=== PATIENT | female | born 1955 | race African-American/Black ===

== ENCOUNTER 2020-07-13 16:56 | Emergency (ER) | payer SELFPAY ==
[2020-07-13] MEDS ORDERED: Morphine 4 MG/ML VIAL ONE (19:28)
[2020-07-13 20:10] LABS: #Basophils 0.1 thou/uL (0.0-0.2); #Lymphocytes 2.5 thou/uL (1.20-3.40); #Monocytes 0.2 thou/uL (0.11-0.59); #Neutrophils 4.5 thou/uL (1.40-6.50); %Basophils 1.2 % (0.0-1.0); %Eosinophils 0.2 % (0.0-10.0); %Lymphocytes 33.8 % (21.0-51.0); %Monocytes 3.4 % (0.0-10.0); %Neutrophils 61.5 % (42.0-75.0); Mean Corpuscular Hemoglobin 36.3 pg (27.0-31.0); Mean Platelet Volume 8.6 fL (7.4-10.4); Platelet Count 273 thou/uL (130-400); Red Blood Cell (RBC) Count 3.86 mill/uL (4.20-5.40); White Blood Cell (WBC) Count 7.3 thou/uL (4.8-10.8)
[2020-07-13 20:13] LABS: INR-International Normal Ratio 0.9; Prothrombin Time 12.6 sec (12.0-14.7)
[2020-07-13] MEDS ORDERED: Acetaminophen 500 MG TAB ONE (20:15)
[2020-07-13 20:37] LABS: ALT (SGPT) 25 U/L (8-55); AST (SGOT) 42 U/L (5-34); Albumin 4.5 g/dL (3.4-4.8); Alkaline Phosphatase 75 U/L (40-110); Anion Gap 20 mmol/L (10-20); BUN (Urea Nitrogen) 6 mg/dL (9.8-20.1); Bilirubin, Total 0.7 mg/dL (0.2-1.2); Calc. Creatinine Clearance 0 mL/min (70-130); Calcium 9.5 mg/dL (7.8-10.44); Carbon Dioxide 19 mmol/L (23-31); Chloride 102 mmol/L (98-107); Globulin 3.4 g/dL (2.4-3.5); Glucose 77 mg/dL (80-115); Potassium 5.1 mmol/L (3.5-5.1); Protein, Total 7.9 g/dL (5.8-8.1); Sodium 136 mmol/L (136-145)
[2020-07-13] MEDS ORDERED: Ketorolac Tromethamine 30 MG/ML VIAL ONE (21:02)
== END 2020-07-13 21:54 | disposition home or self-care (01) ==
LOC: ERS 16:56
DX: S30.0XXA Contusion of lower back and pelvis, initial encounter (principal); R33.9 Retention of urine, unspecified; I10 Essential (primary) hypertension; F17.210 Nicotine dependence, cigarettes, uncomplicated; W18.30XA Fall on same level, unspecified, initial encounter
CPT/HCPCS: 74177; 80053; 85025; 85610; 85730; 96374; J1885; J2270

== ENCOUNTER 2020-07-24 11:55 | Emergency (ER) | payer SELFPAY ==
[2020-07-24] MEDS ORDERED: Iopamidol-370 76% 500 ML 1 ML ONE (13:53)
[2020-07-24 13:54] LABS: #Lymphocytes 1.7 thou/uL (1.20-3.40); #Monocytes 0.7 thou/uL (0.11-0.59); #Neutrophils 4.5 thou/uL (1.40-6.50); %Basophils 0.1 % (0.0-1.0); %Eosinophils 0.3 % (0.0-10.0); %Lymphocytes 24.9 % (21.0-51.0); %Monocytes 9.8 % (0.0-10.0); %Neutrophils 64.9 % (42.0-75.0); Hemoglobin 14.4 g/dL (12.0-16.0); Mean Corpuscular HGB CONC 34.8 g/dL (32.0-36.0); Mean Corpuscular Hemoglobin 36.1 pg (27.0-31.0); Mean Platelet Volume 7.3 fL (7.4-10.4); Platelet Count 309 thou/uL (130-400); RBC Distribution Width 12.1 % (11.5-14.5); White Blood Cell (WBC) Count 6.9 thou/uL (4.8-10.8)
[2020-07-24 14:04] LABS: ALT (SGPT) 26 U/L (8-55); AST (SGOT) 59 U/L (5-34); Albumin 4.7 g/dL (3.4-4.8); Alkaline Phosphatase 68 U/L (40-110); Anion Gap 18 mmol/L (10-20); BUN (Urea Nitrogen) 9 mg/dL (9.8-20.1); Bilirubin, Total 1.1 mg/dL (0.2-1.2); Calc. Creatinine Clearance 0 mL/min (70-130); Calcium 9.6 mg/dL (7.8-10.44); Carbon Dioxide 24 mmol/L (23-31); Chloride 104 mmol/L (98-107); Globulin 3.7 g/dL (2.4-3.5); Glucose 92 mg/dL (80-115); Protein, Total 8.4 g/dL (5.8-8.1); Sodium 141 mmol/L (136-145)
[2020-07-24 14:10] LABS: Bilirubin Negative (Negative); Blood, Urine Trace (Negative); Glucose, Urine (Dipstick) Negative (Negative); Ketone, Urine Negative (Negative); Leukocyte Negative (Negative); Nitrite Negative (Negative); Protein, Urine (Dipstick) Negative (Neg-Trace); Urobilinogen 0.2 mg/dL (Less than 2)
[2020-07-24 14:16] LABS: Clarity Clear (Clear)
[2020-07-24 14:17] LABS: Bacteria/HPF None Seen HPF (None Seen); RBC/HPF 0-3 HPF (0-3); WBC/HPF 0-3 HPF (0-3)
== END 2020-07-24 16:56 | disposition home or self-care (01) ==
LOC: ERS 11:55
DX: R55 Syncope and collapse (principal); F17.210 Nicotine dependence, cigarettes, uncomplicated; I10 Essential (primary) hypertension; Z79.899 Other long term (current) drug therapy; W19.XXXA Unspecified fall, initial encounter
CPT/HCPCS: 36415; 70450; 71045; 71275; 72125; 80053; 81003; 84484; 85025; 85379; 93005; Q9967

== ENCOUNTER 2020-11-14 20:31 | Emergency (ER) | payer SELFPAY ==
[2020-11-14 23:05] LABS: ALT (SGPT) 27 U/L (8-55); AST (SGOT) 70 U/L (5-34); Albumin 4.5 g/dL (3.4-4.8); Alkaline Phosphatase 76 U/L (40-110); Anion Gap 16 mmol/L (10-20); BUN (Urea Nitrogen) 8 mg/dL (9.8-20.1); Bilirubin, Total 0.5 mg/dL (0.2-1.2); Calc. Creatinine Clearance 0 mL/min (70-130); Calcium 9.8 mg/dL (7.8-10.44); Carbon Dioxide 27 mmol/L (23-31); Chloride 100 mmol/L (98-107); Globulin 4.1 g/dL (2.4-3.5); Glucose 91 mg/dL (80-115); Potassium 4.7 mmol/L (3.5-5.1); Protein, Total 8.6 g/dL (5.8-8.1); Sodium 138 mmol/L (136-145)
[2020-11-14 23:32] LABS: Lymphocytes 43 % (21-51); MDiff Complete? YES; Macrocytosis SLIGHT = 6-15 cells (100X) (0-5/hpf); Mean Corpuscular HGB CONC 33.7 g/dL (32.0-36.0); Mean Corpuscular Hemoglobin 35.6 pg (27.0-31.0); Mean Platelet Volume 7.7 fL (7.4-10.4); Monocytes 12 % (0-10); Neutrophil 40 % (42-75); Platelet Count 304 thou/uL (130-400); Platelet Morphology Comment Appears Adequate; Reactive Lymphocytes 4 % (0-10); Red Blood Cell (RBC) Count 4.48 mill/uL (4.20-5.40); Target Cells SLIGHT = 2-5 cells (100X) (0-1/hpf); White Blood Cell (WBC) Count 4.5 thou/uL (4.8-10.8)
== END 2020-11-15 00:12 | disposition home or self-care (01) ==
LOC: ERS 20:31
DX: R41.82 Altered mental status, unspecified (principal); R29.700 NIHSS score 0; I10 Essential (primary) hypertension; F17.210 Nicotine dependence, cigarettes, uncomplicated
CPT/HCPCS: 36415; 70450; 80053; 84146; 85025

== ENCOUNTER 2023-05-08 09:09 | Inpatient (IN) | payer MEDICARE, SELFPAY ==
[2023-05-08 09:32] LABS: #Basophils Less than 0.03 10x3/uL (0.0-0.2); #Eosinphils Less than 0.03 10x3/uL (0.0-0.7); %Basophils 0.1 % (0.0-1.0); %Lymphocytes 23.9 % (21.0-51.0); %Monocytes 15.1 % (0.0-10.0); %Neutrophils 60.6 % (42.0-75.0); Hematocrit 40.6 % (36.0-47.0); Hemoglobin 14.2 g/dL (12.0-16.0); Mean Corpuscular Hemoglobin 35.1 pg (27.0-31.0); Mean Corpuscular Volume 100.2 fL (78.0-98.0); Mean Platelet Volume 9.8 fL (7.4-10.4); Platelet Count 358 10x3/uL (130-400); RBC Distribution Width 14.1 % (11.5-14.5); Red Blood Cell (RBC) Count 4.05 mill/uL (4.20-5.40)
[2023-05-08 09:47] LABS: ALT (SGPT) 12 U/L (8-55); AST (SGOT) 22 U/L (5-34); Albumin 4.2 g/dL (3.4-4.8); Alkaline Phosphatase 80 U/L (40-110); Anion Gap 13 mmol/L (10-20); BUN (Urea Nitrogen) 10 mg/dL (9.8-20.1); Bilirubin, Total 1.1 mg/dL (0.2-1.2); Calc. Creatinine Clearance 0 mL/min (70-130); Carbon Dioxide 31 mmol/L (23-31); Chloride 93 mmol/L (98-107); Estimated GFR 67; Globulin 3.5 g/dL (2.4-3.5); Glucose 113 mg/dL (80-115); Lipase 9 U/L (8-78); Potassium 3.4 mmol/L (3.5-5.1); Protein, Total 7.7 g/dL (5.8-8.1); Sodium 134 mmol/L (136-145)
[2023-05-08] MEDS ORDERED: Morphine 4 MG/ML VIAL ONE (10:00)
[2023-05-08] MEDS ORDERED: Ondansetron PF 4 MG/2 ML Vial ONE (10:00)
[2023-05-08] MEDS ORDERED: Famotidine/PF 20 mg/2ml Vial ONE (10:01)
[2023-05-08 12:05] LABS: Bacteria/HPF None Seen HPF (None Seen); Bilirubin Negative (Negative); Blood, Urine Negative (Negative); CAUTI Indications for Culture Dysuria,urgency,freq; Clarity Clear (Clear); Glucose, Urine (Dipstick) Normal (Negative); Ketone, Urine Negative (Negative); Leukocyte Negative Leu/uL (Negative); Nitrite Negative (Negative); Protein, Urine (Dipstick) Negative (Neg-Trace); RBC/HPF 0-3 HPF (0-3); Specific Gravity, Urine 1.019 (1.002-1.036); Urobilinogen Normal mg/dL (Less than 2); WBC/HPF 0-3 HPF (0-3)
[2023-05-08 12:10] LABS: Urine Culture Reflex No No
[2023-05-08] MEDS ORDERED: Benzocaine 20% Spray 60 ML CAN ONE (12:11)
[2023-05-08] MEDS ORDERED: Morphine 4 MG/ML VIAL SLOW IVP PRN (12:15)
[2023-05-08] MEDS ORDERED: Ondansetron PF 4 MG/2 ML Vial IVP PRN (12:15)
[2023-05-08] MEDS ORDERED: Ipratropium/Albuterol 3 ML NEB NEB PRN (12:15)
[2023-05-08] MEDS ORDERED: Iopamidol-370 76% 500 ML MDV (1 ML CHARGE) ONE (12:25)
[2023-05-08 12:48] VITALS: BMI 19.8
[2023-05-08] MEDS: hydrALAZINE 20 MG/ML VIAL SLOW IVP PRN (13:21)
[2023-05-08] MEDS: Ketorolac Tromethamine 30 MG (1 mL) VIAL IVP SCH (13:21)
[2023-05-08] MEDS: TETANUS, DIPHTHERIA TOX,ADULT (TDVAX) 0.5 ML VIAL IM ONE (15:28)
[2023-05-08] MEDS: Potassium Chloride 30 MEQ in Sodium Chloride 0.9% 1,000 ML IV SCH (15:31)
[2023-05-08] MEDS: Ketorolac Tromethamine 30 MG (1 mL) VIAL IVP PRN (18:27)
[2023-05-08] MEDS: Morphine 2 MG/ML VIAL SLOW IVP PRN (20:54)
[2023-05-08] MEDS: diphenhydrAMINE 50 MG/ML VIAL IVP PRN (20:55)
[2023-05-08] MEDS: Enoxaparin 40 MG (0.4 mL) SYRINGE SC SCH (20:55)
[2023-05-09 05:15] LABS: Hematocrit 36.2 % (36.0-47.0); Hemoglobin 11.9 g/dL (12.0-16.0); Mean Corpuscular HGB CONC 32.9 g/dL (32.0-36.0); Mean Corpuscular Hemoglobin 34.5 pg (27.0-31.0); Mean Corpuscular Volume 104.9 fL (78.0-98.0); Mean Platelet Volume 10.3 fL (7.4-10.4); Platelet Count 308 10x3/uL (130-400); Red Blood Cell (RBC) Count 3.45 mill/uL (4.20-5.40)
[2023-05-09 05:33] LABS: ALT (SGPT) 10 U/L (8-55); AST (SGOT) 17 U/L (5-34); Albumin 3.3 g/dL (3.4-4.8); Alkaline Phosphatase 57 U/L (40-110); Anion Gap 14 mmol/L (10-20); BUN (Urea Nitrogen) 10 mg/dL (9.8-20.1); Bilirubin, Total 1.1 mg/dL (0.2-1.2); Calc. Creatinine Clearance 53 mL/min (70-130); Calcium 8.4 mg/dL (7.8-10.44); Carbon Dioxide 23 mmol/L (23-31); Chloride 107 mmol/L (98-107); Estimated GFR 82; Globulin 2.6 g/dL (2.4-3.5); Glucose 72 mg/dL (80-115); Potassium 3.7 mmol/L (3.5-5.1); Protein, Total 5.9 g/dL (5.8-8.1); Sodium 140 mmol/L (136-145)
[2023-05-09 06:22] LABS: Anisocytosis SLIGHT = 6-15 cells HPF (0-5); Band 4 % (5-11); Lymphocytes 34 % (21-51); Macrocytosis MODERATE=16-30 cells HPF (0-5); Monocytes 15 % (0-10); Neutrophil 46 % (42-75); Platelet Adequacy Comment Platelets Normal; Polychromasia SLIGHT = 2-3 cells HPF (0-2)
[2023-05-09] MEDS: Pantoprazole 40 MG VIAL IVP SCH (08:30)
[2023-05-09] MEDS: FLU VACC QS2023(65UP)/MF59C/PF 60 MCG/0.5 ML SYRINGE IM ONE (08:58)
[2023-05-09] MEDS ORDERED: MD-Gastroview 120 ML BOT ONE (11:06)
[2023-05-09] MEDS ORDERED: Labetalol HCl 100 MG/20 ML VIAL SLOW IVP PRN (13:51)
[2023-05-09] MEDS: Amlodipine 10 MG TAB PO SCH (14:31)
[2023-05-09] MEDS: Labetalol HCl 100 MG/20 ML VIAL SLOW IVP SCH (14:31)
[2023-05-09] MEDS: Acetaminophen 500 MG TAB PO SCH (17:56)
[2023-05-09] MEDS: Melatonin 3 MG TAB PO SCH (20:40)
[2023-05-10] MEDS: Amlodipine 10 MG TAB PO SCH (08:02)
[2023-05-10 09:05] VITALS: TEMP 98.8
[2023-05-10 11:48] VITALS: BP 157/84
== END 2023-05-10 12:20 | disposition home or self-care (01) | DRG 390 ==
LOC: ERS 09:09 → SURG A 12:43
PROVIDERS: ADMIT Specialist; ATTEND Specialist
PROC: 0D9670Z Drainage of Stomach with Drainage Device, Via Natural or Artificial Opening (ICD-10-PCS; principal; 2023-05-08)
PROC: 3E0G76Z Introduction of Nutritional Substance into Upper GI, Via Natural or Artificial Opening (ICD-10-PCS; 2023-05-08)
DX: K56.609 Unspecified intestinal obstruction, unspecified as to partial versus complete obstruction (principal); F17.210 Nicotine dependence, cigarettes, uncomplicated; I10 Essential (primary) hypertension; Z88.5 Allergy status to narcotic agent
CPT/HCPCS: 36415; 43753; 71045; 74022; 74177; 74250; 80053; 81001; 83690; 85025; 93005; 96374; 96375; C9113; J0360; J1200; J1650; J1885; J2270; J2272; J2405; J3480; J7050; Q9963; Q9967; S0028

== ENCOUNTER 2023-12-09 21:05 | Inpatient (IN) | payer MEDICARE, OTHER ==
[~2023-12-09 21:05] MED LIST: Iopamidol-370 76% 500 ML MDV (1 ML CHARGE) ONE
[2023-12-09 21:36] LABS: #Basophils Less than 0.03 10x3/uL (0.0-0.2); #Eosinophils Less than 0.03 10x3/uL (0.0-0.7); %Basophils 0.2 % (0.0-1.0); %Eosinophils 0.1 % (0.0-10.0); %Lymphocytes 8.4 % (21.0-51.0); %Monocytes 5.3 % (0.0-10.0); %Neutrophils 85.7 % (42.0-75.0); Hematocrit 39.4 % (36.0-47.0); Hemoglobin 13.5 g/dL (12.0-16.0); Mean Corpuscular HGB CONC 34.3 g/dL (32.0-36.0); Mean Corpuscular Hemoglobin 34.4 pg (27.0-31.0); Mean Corpuscular Volume 100.5 fL (78.0-98.0); Mean Platelet Volume 10.9 fL (7.4-10.4); Platelet Count 326 10x3/uL (130-400); RBC Distribution Width 14.9 % (11.5-14.5); Red Blood Cell (RBC) Count 3.92 mill/uL (4.20-5.40)
[2023-12-09 21:51] LABS: ALT (SGPT) 22 U/L (8-55); AST (SGOT) 24 U/L (5-34); Albumin 4.1 g/dL (3.4-4.8); Alkaline Phosphatase 98 U/L (40-110); Anion Gap 17 mmol/L (10-20); BUN (Urea Nitrogen) 5 mg/dL (9.8-20.1); Bilirubin, Total 0.7 mg/dL (0.2-1.2); Calc. Creatinine Clearance 0 mL/min (70-130); Calcium 10.5 mg/dL (7.8-10.44); Carbon Dioxide 27 mmol/L (23-31); Chloride 98 mmol/L (98-107); Estimated GFR 71; Globulin 3.9 g/dL (2.4-3.5); Glucose 136 mg/dL (80-115); Lipase 11 U/L (8-78); Potassium 3.3 mmol/L (3.5-5.1); Sodium 139 mmol/L (136-145)
[2023-12-09] MEDS ORDERED: Ondansetron PF 4 MG/2 ML Vial ONE (21:54)
[2023-12-09] MEDS ORDERED: Morphine 4 MG/ML VIAL ONE (21:54)
[2023-12-09] MEDS ORDERED: Morphine 4 MG/ML VIAL SLOW IVP PRN (23:18)
[2023-12-09] MEDS ORDERED: Ondansetron PF 4 MG/2 ML Vial IVP PRN (23:30)
[2023-12-09] MEDS ORDERED: Ondansetron ODT 4 MG TAB SL PRN (23:30)
[2023-12-09] MEDS ORDERED: Sodium Chloride 0.9% 1,000 ML IV SCH (23:30)
[2023-12-09] MEDS ORDERED: Acetaminophen 325 MG TAB PO PRN (23:33)
[2023-12-09] MEDS ORDERED: Senokot S 8.6-50 MG TAB PO PRN (23:33)
[2023-12-09] MEDS ORDERED: traMADol HCl 50 MG TAB PO PRN (23:38)
[2023-12-10] MEDS ORDERED: Lorazepam 2 MG/ML VIAL SLOW IVP PRN (01:38)
[2023-12-10 03:04] VITALS: BMI 17.2
[2023-12-10] MEDS: Thiamine HCl 200 MG/2 ML VIAL SLOW IVP SCH (03:18)
[2023-12-10] MEDS: Lactated Ringer's 1,000 ML IV SCH (03:19)
[2023-12-10] MEDS: Potassium Chloride 20 MEQ in Premix 1 BAG IVPB SCH (03:19)
[2023-12-10] MEDS: Morphine 2 MG/ML VIAL SLOW IVP PRN ×2 (03:52→20:15)
[2023-12-10] MEDS: Ondansetron PF 4 MG/2 ML Vial IVP PRN (03:52)
[2023-12-10 04:31] LABS: #Basophils Less than 0.03 10x3/uL (0.0-0.2); #Eosinophils Less than 0.03 10x3/uL (0.0-0.7); %Basophils 0.1 % (0.0-1.0); %Eosinophils 0.1 % (0.0-10.0); %Lymphocytes 18.8 % (21.0-51.0); %Monocytes 7.3 % (0.0-10.0); %Neutrophils 73.5 % (42.0-75.0); Hematocrit 39.9 % (36.0-47.0); Hemoglobin 13.4 g/dL (12.0-16.0); Mean Corpuscular HGB CONC 33.6 g/dL (32.0-36.0); Mean Corpuscular Hemoglobin 33.4 pg (27.0-31.0); Mean Corpuscular Volume 99.5 fL (78.0-98.0); Mean Platelet Volume 11.1 fL (7.4-10.4); Platelet Count 316 10x3/uL (130-400); RBC Distribution Width 14.8 % (11.5-14.5); Red Blood Cell (RBC) Count 4.01 mill/uL (4.20-5.40)
[2023-12-10 04:43] LABS: Anion Gap 15 mmol/L (10-20); BUN (Urea Nitrogen) 5 mg/dL (9.8-20.1); Calc. Creatinine Clearance 38 mL/min (70-130); Calcium 9.8 mg/dL (7.8-10.44); Carbon Dioxide 28 mmol/L (23-31); Chloride 99 mmol/L (98-107); Estimated GFR 65; Glucose 121 mg/dL (80-115); Potassium 3.6 mmol/L (3.5-5.1); Sodium 138 mmol/L (136-145)
[2023-12-10] MEDS: Famotidine/PF 20 mg/2ml Vial SLOW IVP SCH (08:54)
[2023-12-10] MEDS ORDERED: EPINEPHrine 1 MG/ML VIAL ONE (12:45)
[2023-12-10] MEDS ORDERED: Bupivacaine 0.25% HCL 30 ML VIAL ONE (12:46)
[2023-12-10] MEDS ORDERED: Lidocaine 1% PF 5 ML VIAL ONE (13:28)
[2023-12-10] MEDS ORDERED: fentaNYL 50 mcg/mL 1 mL Vial ONE ×3 (13:28→15:38)
[2023-12-10] MEDS ORDERED: Rocuronium Bromide 10 MG/ML (10ML VIAL) ONE (13:28)
[2023-12-10] MEDS ORDERED: PROPOFOL 20 ML ONE (13:28)
[2023-12-10] MEDS ORDERED: Ketamine In 0.9 % NaCl 50 MG/5 ML SYRINGE ONE (13:44)
[2023-12-10] MEDS ORDERED: PHENYLEPHRINE-NS 100 MCG/ML 10 ML SYRINGE ONE (13:48)
[2023-12-10] MEDS ORDERED: Ondansetron PF 4 MG/2 ML Vial ONE ×2 (13:53→14:32)
[2023-12-10] MEDS ORDERED: Dexamethasone 4 mg/ml Vial ONE (13:53)
[2023-12-10] MEDS ORDERED: cefOXitin 2 GM VIAL ONE (13:59)
[2023-12-10] MEDS ORDERED: SUGAMMADEX SODIUM 200 MG/2 ML VIAL ONE (14:38)
[2023-12-10] MEDS ORDERED: Midazolam HCl 2 mg/2 ml Vial ONE (15:20)
[2023-12-10] MEDS: Ketorolac Tromethamine 30 MG (1 mL) VIAL IVP SCH ×2 (17:43→20:09)
[2023-12-10] MEDS: Melatonin 3 MG TAB PO SCH (20:28)
[2023-12-10] MEDS: Enoxaparin 30 MG (0.3 mL) SYRINGE SC SCH (20:28)
[2023-12-10] MEDS: hydrALAZINE 25 MG TAB PO SCH (20:29)
[2023-12-11 05:03] LABS: Hematocrit 31.9 % (36.0-47.0); Hemoglobin 10.6 g/dL (12.0-16.0); Mean Corpuscular HGB CONC 33.2 g/dL (32.0-36.0); Mean Corpuscular Hemoglobin 34.5 pg (27.0-31.0); Mean Corpuscular Volume 103.9 fL (78.0-98.0); Mean Platelet Volume 10.7 fL (7.4-10.4); Platelet Count 238 10x3/uL (130-400); RBC Distribution Width 15.2 % (11.5-14.5); Red Blood Cell (RBC) Count 3.07 mill/uL (4.20-5.40)
[2023-12-11 05:21] LABS: ALT (SGPT) 13 U/L (8-55); AST (SGOT) 22 U/L (5-34); Albumin 2.6 g/dL (3.4-4.8); Alkaline Phosphatase 51 U/L (40-110); Anion Gap 11 mmol/L (10-20); BUN (Urea Nitrogen) 10 mg/dL (9.8-20.1); Bilirubin, Total 0.9 mg/dL (0.2-1.2); Calc. Creatinine Clearance 42 mL/min (70-130); Carbon Dioxide 26 mmol/L (23-31); Chloride 109 mmol/L (98-107); Estimated GFR 77; Globulin 2.6 g/dL (2.4-3.5); Glucose 108 mg/dL (80-115); Magnesium 1.7 mg/dL (1.6-2.6); Potassium 4.1 mmol/L (3.5-5.1); Protein, Total 5.2 g/dL (5.8-8.1); Sodium 142 mmol/L (136-145)
[2023-12-11 05:37] LABS: Anisocytosis SLIGHT = 6-15 cells HPF (0-5); Band 30 % (5-11); Burr Cells SLIGHT = 2-5 cells HPF (0-1); Hypochromia SLIGHT = 6-15 cells HPF (0-5); Large Platelets 2.9 % (0-5); Lymphocytes 23 % (21-51); Macrocytosis MODERATE=16-30 cells HPF (0-5); Metamyelocyte 1 % (0-0); Monocytes 4 % (0-10); Neutrophil 41 % (42-75); Platelet Adequacy Comment Platelets Normal; Polychromasia SLIGHT = 2-3 cells HPF (0-2); Target Cells SLIGHT = 2-5 cells HPF (0-1); Toxic Granulation SLIGHT; Vacuoles SLIGHT
[2023-12-11] MEDS: Famotidine/PF 20 mg/2ml Vial SLOW IVP SCH (08:54)
[2023-12-11] MEDS: Amlodipine 10 MG TAB PO SCH (08:55)
[2023-12-11] MEDS: Losartan 25 MG TAB PO SCH (08:55)
[2023-12-11] MEDS: Lactated Ringer's 1,000 ML IV SCH (17:07)
[2023-12-12 05:35] LABS: #Basophils 0.04 10x3/uL (0.0-0.2); %Basophils 0.4 % (0.0-1.0); %Monocytes 11.8 % (0.0-10.0); %Neutrophils 68.4 % (42.0-75.0); Hematocrit 31.2 % (36.0-47.0); Hemoglobin 9.8 g/dL (12.0-16.0); Mean Corpuscular HGB CONC 31.4 g/dL (32.0-36.0); Mean Corpuscular Hemoglobin 34.3 pg (27.0-31.0); Mean Corpuscular Volume 109.1 fL (78.0-98.0); Platelet Count 231 10x3/uL (130-400); RBC Distribution Width 15.1 % (11.5-14.5); Red Blood Cell (RBC) Count 2.86 mill/uL (4.20-5.40)
[2023-12-12 05:58] LABS: Anion Gap 13 mmol/L (10-20); BUN (Urea Nitrogen) 8 mg/dL (9.8-20.1); Calc. Creatinine Clearance 53 mL/min (70-130); Calcium 8.1 mg/dL (7.8-10.44); Carbon Dioxide 23 mmol/L (23-31); Chloride 107 mmol/L (98-107); Estimated GFR 96; Glucose 69 mg/dL (80-115); Potassium 3.5 mmol/L (3.5-5.1); Sodium 139 mmol/L (136-145)
[2023-12-12] MEDS: Famotidine/PF 20 mg/2ml Vial SLOW IVP SCH (09:24)
[2023-12-12] MEDS: Lactated Ringer's 1,000 ML IV SCH (16:19)
[2023-12-12] MEDS: Ketorolac Tromethamine 30 MG (1 mL) VIAL IVP SCH (17:43)
[2023-12-13] MEDS: Lactated Ringer's 1,000 ML IV SCH (10:01)
[2023-12-13] MEDS: Temazepam 15 MG CAP PO PRN (23:24)
[2023-12-14] MEDS: FLU (Fluad Triv) TS24-25 (65UP)/MF59C/PF 45 MCG/0.5 ML Syringe IM ONE (07:32)
[2023-12-15] MEDS: Famotidine 20 MG TAB PO SCH (09:25)
[2023-12-15] MEDS: Senokot S 8.6-50 MG TAB PO SCH ×2 (12:18→20:28)
[2023-12-15] MEDS: Polyethylene Glycol 3350 17 GM Packet PO SCH (12:18)
[2023-12-15] MEDS: Acetaminophen 325 MG TAB PO PRN (14:10)
[2023-12-15] MEDS: dilTIAZem 30 MG TAB PO SCH (18:05)
[2023-12-16 04:43] VITALS: TEMP 98.5
[2023-12-16] MEDS ORDERED: HYDROcodone/Acetaminophen 5/325 mg Tablet PO PRN (07:59)
[2023-12-16] MEDS: Polyethylene Glycol 3350 17 GM Packet PO SCH (09:01)
[2023-12-16 14:05] VITALS: BP 137/93
[2023-12-16 14:51] VITALS: BMI 18.3
== END 2023-12-16 14:47 | disposition home health service (06) | DRG 336 ==
LOC: ERS 21:05 → 2NO 23:11
PROVIDERS: ADMIT Student in an Organized Health Care Education/Training Program; ATTEND Family Medicine
PROC: 0DN80ZZ Release Small Intestine, Open Approach (ICD-10-PCS; principal; 2023-12-10)
PROC: 02HV33Z Insertion of Infusion Device into Superior Vena Cava, Percutaneous Approach (ICD-10-PCS; 2023-12-10)
DX: K56.50 Intestinal adhesions [bands], unspecified as to partial versus complete obstruction (principal); K91.89 Other postprocedural complications and disorders of digestive system; I10 Essential (primary) hypertension; F17.210 Nicotine dependence, cigarettes, uncomplicated; K56.2 Volvulus; K56.7 Ileus, unspecified; F10.10 Alcohol abuse, uncomplicated; Z71.6 Tobacco abuse counseling; Z88.5 Allergy status to narcotic agent; Z90.49 Acquired absence of other specified parts of digestive tract
CPT/HCPCS: 36415; 71045; 74018; 74177; 80048; 80053; 83605; 83690; 83735; 85025; 93005; 94760; 96361; 96374; 96375; A4314; C1776; J0171; J0665; J0694; J1100; J1650; J1885; J2250; J2272; J2405; J2704; J3010; J3411; J3480; J3490; J7120; Q9967

== ENCOUNTER 2024-01-16 22:06 | Inpatient (IN) | payer MEDICARE, OTHER ==
[2024-01-16 23:09] LABS: #Basophils Less than 0.03 10x3/uL (0.0-0.2); %Basophils 0.4 % (0.0-1.0); %Eosinophils 0.6 % (0.0-10.0); %Lymphocytes 39.1 % (21.0-51.0); %Monocytes 11.4 % (0.0-10.0); %Neutrophils 48.1 % (42.0-75.0); Hematocrit 29.3 % (36.0-47.0); Hemoglobin 9.9 g/dL (12.0-16.0); Mean Corpuscular HGB CONC 33.8 g/dL (32.0-36.0); Mean Corpuscular Volume 97.7 fL (78.0-98.0); Mean Platelet Volume 8.9 fL (7.4-10.4); Platelet Count 293 10x3/uL (130-400); RBC Distribution Width 14.6 % (11.5-14.5)
[2024-01-16 23:26] LABS: ALT (SGPT) 9 U/L (8-55); AST (SGOT) 17 U/L (5-34); Alkaline Phosphatase 63 U/L (40-110); Anion Gap 14 mmol/L (10-20); BUN (Urea Nitrogen) 6 mg/dL (9.8-20.1); Bilirubin, Total 0.3 mg/dL (0.2-1.2); Calc. Creatinine Clearance 0 mL/min (70-130); Calcium 7.8 mg/dL (7.8-10.44); Carbon Dioxide 18 mmol/L (23-31); Chloride 97 mmol/L (98-107); Estimated GFR 96; Globulin 2.9 g/dL (2.4-3.5); Glucose 86 mg/dL (80-115); Lipase 15 U/L (8-78); Protein, Total 5.9 g/dL (5.8-8.1); Sodium 125 mmol/L (136-145)
[2024-01-16 23:29] LABS: Troponin I Less than 0.010 ng/mL (< 0.028)
[2024-01-17 00:39] LABS: Bilirubin Negative (Negative); Blood, Urine Negative (Negative); CAUTI Indications for Culture Dysuria,urgency,freq; Clarity Clear (Clear); Glucose, Urine (Dipstick) Normal (Negative); Ketone, Urine Negative (Negative); Leukocyte Negative Leu/uL (Negative); Nitrite Negative (Negative); Protein, Urine (Dipstick) Negative (Neg-Trace); RBC/HPF 0-3 HPF (0-3); Specific Gravity, Urine 1.006 (1.002-1.036); Squamous Epithelial 0-3 HPF (0-3); Urobilinogen Normal mg/dL (Less than 2); WBC/HPF 0-3 HPF (0-3); pH, Urine 6.5 (5.0-9.0)
[2024-01-17 00:41] LABS: Bacteria/HPF 1+ HPF (None Seen); Urine Culture Reflex No No
[2024-01-17] MEDS ORDERED: Ondansetron PF 4 MG/2 ML Vial IVP PRN ×2 (01:43→12:15)
[2024-01-17] MEDS: Sodium Chloride 0.9% 1,000 ML IV SCH (03:42)
[2024-01-17] MEDS: Lorazepam 2 MG/ML VIAL SLOW IVP SCH (03:43)
[2024-01-17] MEDS: Sodium Chloride 0.9% 500 ML IV SCH (03:46)
[2024-01-17] MEDS ORDERED: Electrolyte Replacement Protocol 1 EACH FS SCH (04:15)
[2024-01-17] MEDS ORDERED: Lorazepam 1 MG TAB PO PRN (04:15)
[2024-01-17 04:41] VITALS: BMI 17.5
[2024-01-17 05:28] LABS: #Basophils Less than 0.03 10x3/uL (0.0-0.2); #Eosinophils Less than 0.03 10x3/uL (0.0-0.7); %Basophils 0.4 % (0.0-1.0); %Eosinophils 0.2 % (0.0-10.0); %Lymphocytes 25.5 % (21.0-51.0); %Monocytes 12.8 % (0.0-10.0); %Neutrophils 60.7 % (42.0-75.0); Mean Corpuscular HGB CONC 34.4 g/dL (32.0-36.0); Mean Corpuscular Hemoglobin 32.6 pg (27.0-31.0); Mean Platelet Volume 9.3 fL (7.4-10.4); Platelet Count 331 10x3/uL (130-400); RBC Distribution Width 14.7 % (11.5-14.5); Red Blood Cell (RBC) Count 3.37 mill/uL (4.20-5.40)
[2024-01-17 05:44] LABS: Magnesium 1.9 mg/dL (1.6-2.6)
[2024-01-17 07:07] LABS: ALT (SGPT) 10 U/L (8-55); AST (SGOT) 24 U/L (5-34); Albumin 3.2 g/dL (3.4-4.8); Alkaline Phosphatase 66 U/L (40-110); Anion Gap 15 mmol/L (10-20); BUN (Urea Nitrogen) 6 mg/dL (9.8-20.1); Bilirubin, Total 0.4 mg/dL (0.2-1.2); Calc. Creatinine Clearance 47 mL/min (70-130); Calcium 7.9 mg/dL (7.8-10.44); Carbon Dioxide 19 mmol/L (23-31); Chloride 102 mmol/L (98-107); Estimated GFR 82; Globulin 3.1 g/dL (2.4-3.5); Glucose 92 mg/dL (80-115); Potassium 4.6 mmol/L (3.5-5.1); Protein, Total 6.3 g/dL (5.8-8.1); Sodium 131 mmol/L (136-145)
[2024-01-17] MEDS: Thiamine HCl 200 MG/2 ML VIAL SLOW IVP SCH (07:22)
[2024-01-17] MEDS: Aspirin 81 mg Enteric Coated Tablet PO SCH (08:29)
[2024-01-17] MEDS: Magnesium 2 GM/50 ML(in water) 2 GM in Premix 1 BAG IVPB SCH (08:29)
[2024-01-17] MEDS: Nicotine 21 MG PATCH TD SCH (08:30)
[2024-01-17] MEDS: Famotidine/PF 20 mg/2ml Vial SLOW IVP SCH (08:30)
[2024-01-17] MEDS: Enoxaparin 30 MG (0.3 mL) SYRINGE SC SCH (08:30)
[2024-01-17] MEDS ORDERED: dilTIAZem CD 120 MG CAP PO SCH (09:00)
[2024-01-17] MEDS ORDERED: hydrALAZINE 25 MG TAB PO SCH (09:00)
[2024-01-17] MEDS ORDERED: Losartan 25 MG TAB PO SCH (09:00)
[2024-01-17 10:34] LABS: SARS-CoV-2 E Target Negative; SARS-CoV-2 N2 Target Negative; SARS-CoV-2 NAA Rapid Test Not Detected (NotDetected); SARS-CoV-2 RdRP gene Negative
[2024-01-17] MEDS: Megestrol Acetate 800 MG/20 ML UDCUP PO SCH (12:31)
[2024-01-17] MEDS: Acetaminophen 325 MG TAB PO PRN (12:31)
[2024-01-17] MEDS: Bisacodyl 10 MG SUPP PR SCH (12:32)
[2024-01-17] MEDS: Metoclopramide HCl 10 MG (2 mL) VIAL IVP SCH (12:32)
[2024-01-17 13:01] VITALS: BMI 17.5
[2024-01-17] MEDS: Melatonin 3 MG TAB PO SCH (20:07)
[2024-01-17] MEDS: Pantoprazole DR 40 MG TAB PO SCH (20:07)
[2024-01-18] MEDS: hydrALAZINE 20 MG/ML VIAL SLOW IVP SCH (03:41)
[2024-01-18] MEDS ORDERED: hydrALAZINE 20 MG/ML VIAL SLOW IVP SCH (03:45)
[2024-01-18] MEDS ORDERED: Lorazepam 1 MG TAB PO PRN (04:15)
[2024-01-18 05:47] LABS: #Basophils 0.03 10x3/uL (0.0-0.2); #Eosinophils Less than 0.03 10x3/uL (0.0-0.7); %Basophils 0.5 % (0.0-1.0); %Eosinophils 0.4 % (0.0-10.0); %Lymphocytes 50.3 % (21.0-51.0); %Monocytes 14.3 % (0.0-10.0); %Neutrophils 34.3 % (42.0-75.0); Hematocrit 31.1 % (36.0-47.0); Hemoglobin 10.6 g/dL (12.0-16.0); Mean Corpuscular HGB CONC 34.1 g/dL (32.0-36.0); Mean Corpuscular Hemoglobin 33.4 pg (27.0-31.0); Mean Corpuscular Volume 98.1 fL (78.0-98.0); Mean Platelet Volume 9.9 fL (7.4-10.4); Platelet Count 333 10x3/uL (130-400); RBC Distribution Width 14.8 % (11.5-14.5); Red Blood Cell (RBC) Count 3.17 mill/uL (4.20-5.40)
[2024-01-18 06:02] LABS: Anion Gap 11 mmol/L (10-20); BUN (Urea Nitrogen) Less than 4 mg/dL (9.8-20.1); Calc. Creatinine Clearance 59 mL/min (70-130); Calcium 8.6 mg/dL (7.8-10.44); Carbon Dioxide 18 mmol/L (23-31); Chloride 110 mmol/L (98-107); Estimated GFR 98; Glucose 88 mg/dL (80-115); Magnesium 2.1 mg/dL (1.6-2.6); Potassium 3.8 mmol/L (3.5-5.1); Sodium 135 mmol/L (136-145)
[2024-01-18] MEDS: Polyethylene Glycol 3350 17 GM Packet PO SCH (08:32)
[2024-01-18] MEDS: Megestrol Acetate 800 MG/20 ML UDCUP PO SCH (08:33)
[2024-01-18] MEDS ORDERED: Benzonatate 100 MG CAP PO PRN (08:44)
[2024-01-18] MEDS: guaiFENesin ER 600 MG TAB PO SCH (09:06)
[2024-01-18] MEDS: dilTIAZem CD 120 MG CAP PO SCH (09:06)
[2024-01-18] MEDS: Losartan 25 MG TAB PO SCH ×2 (09:06→20:16)
[2024-01-18] MEDS: Loratadine 10 MG TAB PO SCH (09:06)
[2024-01-18] MEDS: Folic Acid 1 MG TAB PO SCH (09:06)
[2024-01-18] MEDS ORDERED: Fioricet 325/50/40 mg Tablet PO PRN (17:05)
[2024-01-18] MEDS: Fioricet 325/50/40 mg Tablet PO SCH (17:38)
[2024-01-18] MEDS: hydrALAZINE 25 MG TAB PO SCH ×2 (17:38→20:17)
[2024-01-18] MEDS: Calcium Carbonate 500 MG ChewTAB PO PRN (20:25)
[2024-01-18] MEDS: traZODone HCl 50 MG TAB PO SCH (23:06)
[2024-01-19] MEDS ORDERED: Lorazepam 1 MG TAB PO PRN (04:15)
[2024-01-19 05:45] LABS: #Basophils Less than 0.03 10x3/uL (0.0-0.2); %Basophils 0.4 % (0.0-1.0); %Eosinophils 0.6 % (0.0-10.0); %Lymphocytes 43.3 % (21.0-51.0); %Monocytes 11.7 % (0.0-10.0); %Neutrophils 43.8 % (42.0-75.0); Hematocrit 29.6 % (36.0-47.0); Hemoglobin 9.9 g/dL (12.0-16.0); Mean Corpuscular HGB CONC 33.4 g/dL (32.0-36.0); Mean Corpuscular Hemoglobin 32.9 pg (27.0-31.0); Mean Corpuscular Volume 98.3 fL (78.0-98.0); Mean Platelet Volume 9.6 fL (7.4-10.4); Platelet Count 319 10x3/uL (130-400); Red Blood Cell (RBC) Count 3.01 mill/uL (4.20-5.40)
[2024-01-19 05:59] LABS: Anion Gap 11 mmol/L (10-20); BUN (Urea Nitrogen) 5 mg/dL (9.8-20.1); Calc. Creatinine Clearance 52 mL/min (70-130); Calcium 8.4 mg/dL (7.8-10.44); Carbon Dioxide 20 mmol/L (23-31); Chloride 107 mmol/L (98-107); Estimated GFR 94; Glucose 99 mg/dL (80-115); Potassium 3.7 mmol/L (3.5-5.1); Sodium 134 mmol/L (136-145)
[2024-01-19 08:18] VITALS: BP 153/79; TEMP 98.4
[2024-01-20] MEDS ORDERED: Lorazepam 0.5 MG TAB PO PRN (04:15)
== END 2024-01-19 12:05 | disposition home or self-care (01) | DRG 389 ==
LOC: ERS 22:06 → SURG B 01-17 01:23
PROVIDERS: ADMIT Internal Medicine; ATTEND Family Medicine
DX: K56.600 Partial intestinal obstruction, unspecified as to cause (principal); E44.0 Moderate protein-calorie malnutrition; E87.1 Hypo-osmolality and hyponatremia; Z68.1 Body mass index [BMI] 19.9 or less, adult; F10.10 Alcohol abuse, uncomplicated; E87.8 Other disorders of electrolyte and fluid balance, not elsewhere classified; I10 Essential (primary) hypertension; J06.9 Acute upper respiratory infection, unspecified; K21.9 Gastro-esophageal reflux disease without esophagitis; Z71.41 Alcohol abuse counseling and surveillance of alcoholic; I95.9 Hypotension, unspecified; Z88.5 Allergy status to narcotic agent
CPT/HCPCS: 36415; 71045; 74018; 74177; 80048; 80053; 80307; 81001; 82607; 83690; 83735; 84484; 85025; 93005; 94760; J0360; J1650; J2060; J2765; J3411; J3475; J3490; J7030; Q9967; U0002

== ENCOUNTER 2024-03-19 14:28 | Outpatient (CLI) | payer OTHER | END 2024-03-19 14:29 | disposition home or self-care (01) | LOC: SCSRAD 14:28 | PROVIDERS: ATTEND Family Medicine | DX: S90.32XA Contusion of left foot, initial encounter (principal) ==

== ENCOUNTER 2024-10-14 17:33 | Emergency (ER) | payer MEDICARE, OTHER ==
[2024-10-14 17:57] LABS: #Basophils 0.04 10x3/uL (0.0-0.2); #Eosinophils 0.03 10x3/uL (0.0-0.7); #Monocytes 0.92 10x3/uL (0.11-0.59); #Neutrophils 1.87 10x3/uL (1.40-6.50); %Basophils 0.9 % (0.0-1.0); %Eosinophils 0.6 % (0.0-10.0); %Lymphocytes 38.4 % (21.0-51.0); %Monocytes 19.7 % (0.0-10.0); %Neutrophils 40.2 % (42.0-75.0); Hematocrit 34.6 % (36.0-47.0); Hemoglobin 11.7 g/dL (12.0-16.0); Mean Corpuscular Hemoglobin 34.1 pg (27.0-31.0); Mean Corpuscular Volume 100.9 fL (78.0-98.0); Platelet Count 304 10x3/uL (130-400); Red Blood Cell (RBC) Count 3.43 mill/uL (4.20-5.40); White Blood Cell (WBC) Count 4.66 10x3/uL (4.8-10.8)
[2024-10-14 18:17] LABS: Acetaminophen Less than 10 mcg/mL (Less than 10); Salicylate Less than 8.0 mg/dL (Less than 8.0)
[2024-10-14] MEDS ORDERED: Acetaminophen 500 MG TAB ONE (18:17)
[2024-10-14 18:34] LABS: ALT (SGPT) 53 U/L (Less than 34); AST (SGOT) 133 U/L (11-34); Albumin 3.6 g/dL (3.1-4.5); Alkaline Phosphatase 122 U/L (40-110); Anion Gap 16 mmol/L (10-20); BUN (Urea Nitrogen) 5 mg/dL (9.8-20.1); Bilirubin, Total 0.2 mg/dL (0.3-1.2); Calc. Creatinine Clearance 0 mL/min (70-130); Calcium 8.5 mg/dL (7.8-10.44); Carbon Dioxide 21 mmol/L (23-31); Chloride 100 mmol/L (98-107); Globulin 2.7 g/dL (2.4-3.5); Glucose 75 mg/dL (80-115); Potassium 3.8 mmol/L (3.5-5.1); Sodium 133 mmol/L (136-145)
== END 2024-10-14 19:38 | disposition home or self-care (01) ==
LOC: ERS 17:33
DX: U07.1 COVID-19 (principal); F10.129 Alcohol abuse with intoxication, unspecified; I10 Essential (primary) hypertension; F17.210 Nicotine dependence, cigarettes, uncomplicated; Z04.3 Encounter for examination and observation following other accident
CPT/HCPCS: 71045; 72170; 80053; 80307; 84484; 85025; 87428; 93005